=== PATIENT | male | born 1980 | race Caucasian/White ===

== ENCOUNTER 2019-11-01 16:36 | Emergency (ER) | payer OTHER ==
[~2019-11-01] VITALS: Ht 160 cm; Wt 74.8 kg
[2019-11-01] MEDS ORDERED: BUTALB-ACETAMI1 EAC2 (16:47)
[2019-11-01] MEDS ORDERED: ENALAPRIL-HCTZ1 EACH (16:48)
== END 2019-11-01 20:16 | disposition home or self-care (01) ==
LOC: ER 16:36
DX: J32.2 Chronic ethmoidal sinusitis (principal); R51 Headache